=== PATIENT | male | born 1970 | race Caucasian/White ===

== ENCOUNTER 2018-11-25 19:30 | Emergency (ER) | payer BC, OTHER ==
[~2018-11-25] VITALS: Ht 180.3 cm; Wt 92.3 kg
[~2018-11-25 19:30] MED LIST: CIPR500T4 PO
[2018-11-25 19:36] VITALS: Ht 180.3 cm; Wt 92.3 kg
[2018-11-25] MEDS ORDERED: DIPHTH/TET/ACEL PERTUSS (ADULT) 0.5 ML VIAL IM* ONE (20:00)
[2018-11-25] MEDS ORDERED: CIPROFLOXACIN 500 MG TAB PO ONE (22:00)
[2018-11-25 22:11] VITALS: BP 144/106; PULSE 73; RESP 17
--- NOTE | 2018-11-26 04:12 | ERD ---
ER Documentation Chief Complaint Chief Complaint SEWING NEEDLE IN LT FOOT, NO RECOLLECTION OF RECENT TETANUS SHOT HPI This is a very pleasant 48-year-old male who is visiting from [place] and presenting to the ED with complaints of a retained foreign bite to his left plantar foot. He states he was getting ready for his cousins green party when he accidentally stepped on a needle. Patient was wearing socks. He states he was able to remove a small piece of needle but believes a larger piece of it is still retained in his foot. He reports continued pain when walking and with palpation. There is no active bleeding, drainage. No numbness or tingling. No fevers or chills. No swelling. No recent tetanus shot. No other injuries. No history of diabetes or other comorbidities. ROS All systems reviewed and are negative except as per history of present illness. Medications Home Meds Active Scripts Ciprofloxacin Hcl* (Ciprofloxacin Hcl*) 500 Mg Tablet, 500 MG PO BID for 7 Days, TAB Prov:VICKY MCCULLOUGH PA-C 11/25/18 Allergies Allergies: Coded Allergies: No Known Allergy (Unverified , 11/25/18) PMhx/Soc Medical and Surgical Hx: pt denies Medical Hx, pt denies Surgical Hx Hx Alcohol Use: No Hx Substance Use: No Hx Tobacco Use: No Smoking Status: Never smoker Physical Exam Vitals Vital Signs Date Temp Pulse Resp B/P (MAP) Pulse Ox O2 O2 Flow FiO2 Time Delivery Rate 11/25/18 98.7 73 17 144/106 97 Room Air 22:11 (119) 11/25/18 97.9 97 16 143/88 97 19:36 (106) Physical Exam Const: No acute distress Head: Atraumatic Eyes: Normal Conjunctiva ENT: Normal External Ears, Nose and Mouth. Back: No midline or flank tenderness Ext: + Punctate lesion to plantar aspect of left foot near the second and third metatarsal with tenderness palpation, no visible foreign body, full range of motion of the toes and foot, sensation grossly intact. DP/PT pulses 2+. Neur: Awake and alert Psych: Normal Mood and Affect Results 24 hrs Current Medications Medications Dose Sig/Ayush Start Time Status Last (Trade) Ordered Route PRN Stop Time Admin Dose Reason Admin Diphtheria/ 0.5 ml ONCE ONCE 11/25/18 DC 11/25/18 Tetanus/Acell IM* 20:00 19:57 Pertussis 11/25/18 20:01 (Adacel) 500 mg ONCE ONCE 11/25/18 DC 11/25/18 Ciprofloxacin PO 22:00 21:47 (Cipro) 11/25/18 22:01 Procedures/[facility]M LABS & DIAGNOSTIC IMAGING: PROCEDURE: XR Left Foot. CLINICAL INDICATION: Stepped on needle, piece still missing, pain FINDINGS: The bones of the foot appear intact, with no evidence of fracture, dislocation, or subluxation. The joint spaces are preserved. The bone mineralization is normal. No significant soft tissue swelling is seen. There is an approximate 2.2 cm long needle fragment in the soft tissues on the dorsal aspect of the foot at the level of the heads of the second and third metatarsals. IMPRESSION: There is an approximate 2.2 cm long needle fragment in the soft tissues on the dorsal aspect of the foot at the level of the heads of the second and third metatarsals. ED COURSE: The patient was given this medication, first dose of Cipro The medication was well tolerated and the patient had market improvement in symptoms. The patient remained stable throughout ED course. MEDICAL DECISION MAKING: This is a very pleasant 48-year-old male who presents with left plantar foot pain after stepping on a needle just prior to arrival. X-ray shows a 2.2 cm retained needle. Area was anesthetized and an attempt was made to remove the needle using am eleven blade scalpel, hemostats and tweezers. We were unable to remove the needle after multiple attempts. Discussed case with my supervising doctor, Dr. Blunt and Dr. Main who recommended splinting and outpatient follow-up with podiatry. Patient was therefore placed in Ortho shoe and discharged home with crutches. He was given a prescription for prophylactic antibiotics as well. Patient has no evidence of osteomyelitis, tenosynovitis, necrotizing fasciitis or any other deep space tissue infection at this time. Discussed with patient that this is high risk for infection and requires follow-up with the embossing clerk in 24 to 48 hours, patient understands. Patient states he will be flying back to [place] tomorrow and will see a specialist the day after. Strict return precautions discussed. PRESCRIPTIONS: Cipro SPECIALIST FOLLOW UP RECOMMENDED: Podiatry Departure Diagnosis: Primary Impression: Retained foreign body Condition: Stable Patient Instructions: Foreign Body, Soft Tissue [Not Removed] Referrals: NO PRIMARY,CARE PHYSICIAN (PCP) Additional Instructions: You must follow-up with the embossing clerk early next week. You must finish the entire course of antibiotics for the next 7 days. Wear the boot and crutches in the meantime. Return here for any new or worsening symptoms. VICKY MCCULLOUGH PA-C Nov 26, 2018 04:12
== END 2018-11-25 22:12 | disposition home or self-care (01) ==
LOC: FTE 19:30
DX: S91.342A Puncture wound with foreign body, left foot, initial encounter (principal); W45.8XXA Other foreign body or object entering through skin, initial encounter; Y92.9 Unspecified place or not applicable
CPT/HCPCS: 28190; 73630; 90471; 90715; 99283; L3260